=== PATIENT | male | born 1955 ===

== ENCOUNTER 2024-07-17 11:25 | Emergency (ER) | payer MEDICARE, BC, SELFPAY ==
[2024-07-17 11:27] VITALS: BP 178/107
--- NOTE | 2024-07-17 11:47 | ED.GENMED ---
History of Present Illness
General
Chief Complaint: Musculo-Skeletal Complaint
Source: patient
Exam Limitations: none
Time Seen by Provider: 07/17/24 11:37
Nursing documentation reviewed up to this point in time: agreed with
History of Present Illness
History of Present Illness:
Patient is a 69-year-old male with history hypertension, hyperlipidemia, metastatic kidney cancer presenting to the emergency department with right shoulder pain. Patient states symptoms started Monday night while he was lying in bed after reaching
across his body for the remote. He reports that symptoms initially began with a 'spasm' in his right shoulder which now feels like a aching pain with movement of shoulder. Patient denies little with any pain at rest. He denies any radiation of
pain into chest, back, or neck. Patient denies any numbness/tingling in right upper extremity.
Patient denies any fever, chills, chest pain, or shortness of breath. He denies any back pain.
Patient is currently treated at [place] for metastatic kidney cancer with mets to the bone.
Review of Systems
Review of Systems
Allergies reviewed?: Yes
All Other Systems: ROS reviewed and negative except as documented in HPI and ROS
Phy Exam
Physical Exam
Physical Exam:
Vitals: Hypertensive, otherwise vital signs stable. Afebrile
General: Patient is well appearing, no acute distress
Skin: Warm and dry, no rashes or lesions
Head: Normocephalic, atraumatic
Eyes: Sclera nonicteric.
Throat: Protecting airway
Neck: Normal ROM, no cervical spine tenderness, no meningismus
Cardiac: Regular rate and rhythm, no murmurs.
Pulm: Normal respiratory effort, no wheezes, rales, rhonchi heard on exam.
Abdomen: Abdomen soft and nontender.
Extremities: No erythema, edema, warmth or obvious deformity of right shoulder. No bony tenderness of right shoulder. Limited active ROM in right shoulder secondary to pain although full passive range of motion. Full range of motion in right
elbow and wrist. 2+ palpable radial and brachial pulse. Sensation intact. Cap refill WNL.
Neuro: AAOx3. CN II-XII intact. No focal neurologic deficits.
Psychiatric: Normal affect.
Course
Orders/Labs/Results
Orders:
Orders
07/17/24 11:34
CR Shoulder, Trauma - Right Urgent
Comment:
Reason For Exam: Shoulder pain, muscle spasms, h/o bone mets
Vital Signs
Initial and Last Documented VS:
Initial Vital Signs
Temp Pulse Resp BP Pulse Ox
98.0 F 77 16 178/107 97
07/17/24 11:27 07/17/24 11:27 07/17/24 11:27 07/17/24 11:27 07/17/24 11:27
Last Documented Vital Signs
Temp Pulse Resp BP Pulse Ox
98.0 F 62 18 164/93 97
07/17/24 11:27 07/17/24 13:23 07/17/24 13:23 07/17/24 13:23 07/17/24 11:27
MDM/Problems Addressed
Differential Diagnosis Includes:
Not limited to: Muscle strain, muscle spasm, pathologic fracture, metastatic disease, asked
MDM/Problems Addressed:
69-year-old male with history as documented presenting with two days of right shoulder pain. Pain worse with movement. No radiation to chest, neck, or back. No fever or chills. Vitals and physical exam as above. No bony tenderness of right upper
extremity. No obvious deformity. Limited active ROM in right shoulder secondary to pain. No erythema, warmth or swelling to suggest infectious process. RUE neurovascularly intact. High suspicion for musculoskeletal etiology such as muscle strain as
patient does have limited active range of motion but essentially full passive ROM in shoulder. X-ray of right shoulder shows no acute fracture or dislocation. No radiographic evidence for pathologic fracture or bony mets to right shoulder.
Recommended shoulder sling although patient declines. Advised rest, ice, Tylenol for pain. Return precautions discussed. He will follow up with Oncology as scheduled.
Chronic conditions affecting care:
Stage IV kidney cancer with mets to bone, hypertension
Acute Exacerbation and/or Progression of Chronic Illness:
Acutely hypertensive
*Radiology
Radiology exam reviewed: preliminary read by ED provider (Shoulder x-ray reviewed by me-no acute fracture) and radiology read reviewed
*Pulse Oximetry
Patient hypoxic: no
*EKG
Interpreted by ED Provider?: NA
*Pocket [employer] Creasing Machine Operator Interpretation
Rate: Pocket [employer]asing Machine Operator- N/A
*Critical Care Note
Total Time (30-74mins, 75-104mins- exclusive of procedures): Not Applicable
ED Attending Note
-
Portions of this chart may have been created with voice recognition software.� Occasional wrong word or��sound alike� substitutions may have occurred due to the inherent limitations of voice recognition software.
Discharge Plan
Departure
Patient Disposition: Home (Routine Discharge)
Date of Disposition: 07/17/24
Time of Disposition: 13:10
Patient with high blood pressure during this ER visit?: Yes
Condition: Good
Covid-19: Not Applicable
Discharge Problem:
Pain in right shoulder
Instructions: Shoulder pain - ED discharge instructions, BLOOD PRESSURE
Referrals:
ALICIA GONZALEZ DO [Family Provider] - Keep scheduled appt
Activity Restrictions/Additional Instructions:
RETURN TO THE EMERGENCY DEPARTMENT WITH ANY INTRACTABLE PAIN IN RIGHT SHOULDER, NUMBNESS/TINGLING IN RIGHT UPPER EXTREMITY, CHEST PAIN, SHORTNESS OF BREATH, BACK PAIN, WORSENING IN CURRENT SYMPTOMS, OR ANY OTHER CONCERNS
- Your x-ray in the emergency department showed no evidence of fracture. I suspect you likely have a muscular strain of your right shoulder.
- You can use a shoulder sling if needed. Apply ice to right shoulder and limit any activities that further aggravate shoulder pain. Take Tylenol as needed for pain.
- You should continue to range your shoulder throughout the day to prevent frozen shoulder.
- Follow-up with primary care and oncology for further evaluation/management and to ensure that symptoms are improving. Continue to take medications as prescribed.
Monitor your symptoms closely and return to the emergency department with any acute worsening/new symptoms or any other concerns
Interventions
Interventions:
*Risk Screen - Suicide Last Done: 07/17/24 13:20
*General Assessment Last Done: 07/17/24 13:27
*Neglect/Abuse Screening Last Done: 07/17/24 13:20
*ED- Fall Risk Assessment Last Done: 07/17/24 13:27
*ED COVID-19 Vaccine History Last Done: 07/17/24 13:20
*Nursing Disposition Last Done: 07/17/24 13:27
ED-Musculoskeletal Assessment Last Done: 07/17/24 13:20
Discharge Date and Time
Discharge Date/Time: 07/17/24 13:29
Print Language: [place]
[2024-07-17 13:23] VITALS: BP 164/93
== END 2024-07-17 13:29 | disposition home or self-care (01) ==
LOC: EMR 11:25
PROVIDERS: EMERGENCY PHYSICIAN Emergency Medicine; FAMILY PHYSICIAN Internal Medicine Medical Oncology
DX: M25.511 Pain in right shoulder (principal); I10 Essential (primary) hypertension; E78.00 Pure hypercholesterolemia, unspecified; C64.9 Malignant neoplasm of unspecified kidney, except renal pelvis; C79.51 Secondary malignant neoplasm of bone; M19.012 Primary osteoarthritis, left shoulder
CPT/HCPCS: 99283; 73030

== ENCOUNTER → 2024-12-30 10:24 | Outpatient (REF) | payer MEDICARE, BC, SELFPAY ==
[2024-12-30 10:12] LABS: Glucose 110 mg/dl (70-99)
== END ==
LOC: PET 10:24
PROVIDERS: ATTENDING PHYSICIAN Nurse Practitioner Adult Health
DX: C64.9 Malignant neoplasm of unspecified kidney, except renal pelvis (principal)
CPT/HCPCS: 36415; 82947